=== PATIENT | male | born 1980 | race Caucasian/White ===

== ENCOUNTER 2019-01-14 19:15 | Emergency (ER) | payer BC ==
[~2019-01-14] VITALS: Ht 177.8 cm; Wt 136.1 kg
[~2019-01-14 19:15] MED LIST: ADDERALL XR 2020 MG PO; EFFEXOR 5050 MG/1 T1 PO; IBUPROFEN 800800 M1 PO
[2019-01-14 20:07] LABS: ABSOLUTE BASOPHILS 0.1 thou/uL (0.0-0.2); ABSOLUTE EOSINOPHILS 0.2 thou/uL (0.0-0.7); ABSOLUTE LYMPHOCYTES 2.2 thou/uL (0.8-5.3); ABSOLUTE MONOCYTES 0.8 thou/uL (0.0-1.2); ABSOLUTE NEUTROPHILS 7.2 thou/uL (1.6-8.1); BASOPHILS 0.5 %; EOSINOPHILS 2.1 %; HEMATOCRIT 45.2 % (42.0-52.0); HEMOGLOBIN 15.2 gm/dL (14.0-18.0); LYMPHOCYTES 21.1 %; MCH 27.9 pg (26.0-34.0); MCHC 33.5 g/dL (28.0-37.0); MCV 83.2 fL (80.0-100.0); MONOCYTES 7.3 %; MPV 8.4 fl. (7.2-11.1); NUCLEATED RBCS 0 /100WBC; PLATELET COUNT* 267 thou/uL (150-400); RBC 5.43 mil/uL (4.50-6.00); RDW-CV 13.8 % (10.5-14.5); WBC 10.4 thou/uL (4.0-11.0)
[2019-01-14 20:21] LABS: CALCIUM 8.5 mg/dL (8.5-10.1); POTASSIUM 4.2 mmol/L (3.5-5.1); URIC ACID* 7.5 mg/dL (2.6-7.2)
[2019-01-14] MEDS ORDERED: ALLOPURINOL 10100 M1 PO (20:41)
[2019-01-14 21:05] VITALS: BP 148/78
== END 2019-01-14 21:07 | disposition home or self-care (01) ==
LOC: M.ERS 19:15
PROVIDERS: Nurse Practitioner Family
DX: M10.071 Idiopathic gout, right ankle and foot (principal); G43.909 Migraine, unspecified, not intractable, without status migrainosus